=== PATIENT | male | born 1960 | race Caucasian/White ===

== ENCOUNTER 2022-06-07 15:14 | Emergency (ER) | payer OTHER ==
[2022-06-07 15:55] LABS: Actual Bicarbonate (HCO3v) 26 mEq/L (22-28); Base Excess -0.2 mEq/L (-2 - +2); Calcium, Ionized (venous) 1.12 mmol/L (1.16-1.32); Chloride (VBG) 95 mmol/L (98-106); Hemoglobin (Hb) 16.6 g/dL (13.1-17.2); Puncture Site Other Site; RapidComm Collect By CBRN; Sodium 134.5 mmol/L (133-146); pH (venous) 7.35 (7.32-7.43)
[2022-06-07 15:58] LABS: Hemoglobin 15.7 g/dL (13.5-17.5); Mean Corpuscular HGB CONC 34.6 g/dL (32.0-36.0); Mean Corpuscular Hemoglobin 29.4 pg (27.0-33.0); Mean Platelet Volume 9.4 fl (7.4-10.4); Platelet Count 191 10x3/uL (150-450); RBC Distribution Width 13.2 % (11.5-14.5); Red Blood Cell (RBC) Count 5.34 10x6/uL (4.32-5.72); White Blood Cell (WBC) Count 5.6 10x3/uL (3.5-10.5)
[2022-06-07 15:59] LABS: MDiff Complete? YES
[2022-06-07 16:04] LABS: ALT (SGPT) 122 U/L (8-55); AST (SGOT) 97 U/L (5-34); Albumin 4.2 g/dL (3.5-5.0); Alkaline Phosphatase 83 U/L (40-110); Anion Gap 19 mmol/L (10-20); BUN (Urea Nitrogen) 24 mg/dL (8.4-25.7); Bilirubin, Total 1.1 mg/dL (0.2-1.2); CK (CPK) 60 U/L (30-200); Calc. Creatinine Clearance 0 mL/min (70-130); Calcium 9.2 mg/dL (7.8-10.44); Carbon Dioxide 23 mmol/L (22-29); Chloride 98 mmol/L (98-107); Estimated GFR 68; Globulin 2.3 g/dL (2.4-3.5); Glucose 358 mg/dL (70-105); Lipase 76 U/L (8-78); Potassium 4.5 mmol/L (3.5-5.1); Protein, Total 6.5 g/dL (6.0-8.3); Sodium 135 mmol/L (136-145)
[2022-06-07 16:26] LABS: CKMB 1.1 ng/mL (0-6.6)
[2022-06-07] MEDS ORDERED: Cefepime 2 GM VIAL ONE (17:26)
[2022-06-07] MEDS ORDERED: Aspirin Chewable 81 MG TAB ONE (17:26)
[2022-06-07 17:51] LABS: Band 1 % (5-11); Reactive Lymphocytes 1 % (0-10)
[2022-06-07 17:53] LABS: Lymphocytes 20 % (21-51); Monocytes 22 % (0-10)
[2022-06-07 17:54] LABS: Neutrophil 55 % (42-75)
[2022-06-07 17:57] LABS: Platelet Morphology Comment Appears Adequate
[2022-06-07 18:25] LABS: SARS-CoV-2 NAA Rapid Test DETECTED (NotDetected)
[2022-06-07 18:38] LABS: Lactic Acid 2.6 mmol/L (0.5-2.2)
[2022-06-07] MEDS ORDERED: VANCOMYCIN 1.25 GM/250 ML BAG 1.25 GM in Premix Bag 1 BAG IVPB SCH (19:00)
== END 2022-06-07 22:58 ==
LOC: CSHERS 15:14
DX: U07.1 COVID-19 (principal); I95.9 Hypotension, unspecified; R11.10 Vomiting, unspecified; R74.02 Elevation of levels of lactic acid dehydrogenase [LDH]; I10 Essential (primary) hypertension; E11.9 Type 2 diabetes mellitus without complications
CPT/HCPCS: 36415; 71045; 80053; 82010; 82550; 82553; 82805; 83605; 83690; 83880; 84484; 85025; 93005; 94760; 96361; 96365; 96366; 96367; J0692; J3370